=== PATIENT | female | born 1990 | race Caucasian/White ===

== ENCOUNTER 2020-10-16 06:28 | Day surgery (SDC) | payer OTHER, SELFPAY ==
[2020-10-09 15:16] VITALS: BMI 31.1
--- NOTE | 2020-10-15 08:12 | HO.ANESPROP2 ---
HPI - Anesthesia Eval Consult details Narrative: 30yo F for Upper Endoscopy [facility] Past Medical History Medical History (Updated 10/09/20 @ 15:07 by Alta Nobles) GERD (gastroesophageal reflux disease) Surgical History Surgical History (Updated 10/09/20 @ 15:07 by Alta Nobles) Hx of wisdom tooth extraction Social History Social History Patient Tobacco Use Status: Tobacco use Unknown Advance Directives Information Provided: No Meds Allergies Allergy/AdvReac Type Severity Reaction Status Date / Time No Known Allergies Allergy Verified 10/16/20 06:35 Home Medications Medication Instructions Recorded Confirmed Last Taken Type levonorgestrel-ethinyl estradiol 1 tab PO DAILY 10/09/20 10/16/20 10/16/20 05:00 History 0.1 mg-20 mcg tablet (Larissia) multivitamin 1 tab PO DAILY 10/09/20 10/09/20 Unknown History valacyclovir 500 mg tablet 500 mg PO DAILY 10/09/20 10/09/20 Unknown History Exam Exam Date and Time: October 15, 2020 0812 Height,Weight and Vital Signs: Height 5 ft 3 in Weight 79.832 kg Assessment and Plan Assessment Anesthesia Assessment: Chart Reviewed
[2020-10-16 06:38] VITALS: BP 119/65; PULSE 70; RESP 16; TEMP 36.7; O2SAT 100
[2020-10-16 06:44] LABS: UPreg QC Valid YES; Urine Pregnancy NEGATIVE (NEGATIVE)
[2020-10-16] MEDS: Lactated Ringers 1,000 ML 100 ML IVCONT (06:54)
--- NOTE | 2020-10-16 07:14 | P.CONAN_ITS ---
COUNT INCLUDES THE [facility] Past Medical History Medical History (Updated 10/09/20 @ 15:07 by Alta Nobles) GERD (gastroesophageal reflux disease) Surgical History Surgical History (Updated 10/09/20 @ 15:07 by Alta Nobles) Hx of wisdom tooth extraction Social History Social History Patient Tobacco Use Status: Tobacco use Unknown Advance Directives Information Provided: No Meds Allergies Allergy/AdvReac Type Severity Reaction Status Date / Time No Known Allergies Allergy Verified 10/16/20 06:35 Active Medications: Current Medications Generic Name Dose Route Start Last Admin Trade Name Hailey PRN Reason Stop Dose Admin Lactated Ringer's 1,000 mls @ 100 mls/hr 10/16/20 06:30 10/16/20 06:54 Lr IVCONT 100 mls/hr .Q10H WERNER Administration Home Medications Medication Instructions Recorded Confirmed Last Taken Type levonorgestrel-ethinyl estradiol 1 tab PO DAILY 10/09/20 10/16/20 10/16/20 05:00 History 0.1 mg-20 mcg tablet (Larissia) multivitamin 1 tab PO DAILY 10/09/20 10/09/20 Unknown History valacyclovir 500 mg tablet 500 mg PO DAILY 10/09/20 10/09/20 Unknown History Exam Exam Date and Time: October 16, 2020 0714 Height,Weight and Vital Signs: Height 5 ft 3 in Weight 79.832 kg Last Vital Signs Temp 98.1 F 10/16/20 06:38 Pulse 70 10/16/20 06:38 Resp 16 10/16/20 06:38 BP 119/65 10/16/20 06:38 Pulse Ox 100 10/16/20 06:38 Pertinent Lab Results Pertinent Lab Results: Laboratory Tests 10/16/20 06:17 Urine Test NEGATIVE Airway Mallampati Class: II TM Dist: >3cm Neck ROM: Full
--- NOTE | 2020-10-16 07:24 | MHC.SHP ---
Pre-Procedural Eval Section A Date of Service: 10/16/20 Section B Chief Complaint: reflux disease Details of Present Illness: see H&P no changes Relevant Family History (Specify if Yes): No Relevant Social History: None Present Medications: see Short Stay Collaborative assessment Medical History: No relevant PMH History of Previous Operations: No relevant previous surgery Allergies: Allergies Allergy/AdvReac Type Severity Reaction Status Date / Time No Known Allergies Allergy Verified 10/16/20 06:35 Review of Systems Sugical H&P ROS: Negative: Constitution, Cardiovascular, Respiratory, Neurological, Psychiatric, Hem-Onc, Allergic/Immunologic, Gastrointestinal, Genitourinary, Musculoskeletal, Integumentary, Endocrine and Eyes/Ears/Nose/Throat Exam Surgical H&P Exam: Normal: HEENT, Normal: Heart, Normal: Lungs, Normal: Extremities, Normal: Abdomen, Normal: Skin and Normal: Neurological Plan Diagnosis/Plan: Unchanged I have reviewed the history and physical and performed a pertinent physical examination on my patient. No changes have occurred unless specified.
[2020-10-16 07:42] VITALS: BP 128/65; PULSE 66; RESP 16; TEMP 36.6; O2SAT 98
--- NOTE | 2020-10-16 07:44 | P.BOP_ITS ---
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
--- NOTE | 2020-10-16 07:49 | OP_ITS ---
SURGEON: Dez Osborne MD INDICATIONS: Gastroesophageal reflux disease. PREOPERATIVE DIAGNOSIS: POSTOPERATIVE DIAGNOSIS: PROCEDURE PERFORMED: Upper endoscopy with biopsy. ESTIMATED BLOOD LOSS: COMPLICATIONS: ANESTHESIA: Medications, monitored anesthesia care. ASSISTANTS: SPECIMENS: DESCRIPTION OF PROCEDURE: History and physical performed. The risks and benefits of the procedure were explained to the patient. Informed consent was obtained. The patient was placed in the left lateral decubitus position. The Olympus video gastroscope was introduced into the esophagus, stomach, and duodenum. Examination was performed. The scope was removed. She tolerated the procedure well and was taken to recovery area in stable condition. FINDINGS: ESOPHAGUS: The esophagus was normal. The EG junction was slightly irregular, but there was no esophagitis. STOMACH: The stomach showed no evidence of masses, ulcers, or polyps. DUODENUM: The bulb and second portion were normal. Biopsies were obtained from the EG junction and antrum. IMPRESSION: Normal upper endoscopy. RECOMMENDATION: Follow up the biopsy results. MD NOELLE Sy/MODL / [id number]
[2020-10-16 07:58] VITALS: BP 119/77; PULSE 66; RESP 16; TEMP 36.6; O2SAT 99
== END 2020-10-16 08:25 | disposition home or self-care (01) ==
PROVIDERS: Nurse Practitioner; PCP Physician Assistant Medical; Visit Provider Internal Medicine Gastroenterology
PROC: 0DJ08ZZ Inspection of Upper Intestinal Tract, Via Natural or Artificial Opening Endoscopic (ICD-10-PCS; CPT 43235; principal; 2020-10-16 07:30)
DX: K21.9 Gastro-esophageal reflux disease without esophagitis (principal); K29.50 Unspecified chronic gastritis without bleeding; K20.80 Other esophagitis without bleeding
CPT/HCPCS: 43239; 81025; 88305; 88342; J3010